=== PATIENT | male | born 1935 | race Caucasian/White ===

== ENCOUNTER → 2016-09-08 | Outpatient (CLI) | payer MEDICARE ==
[~2016-09-08] MED LIST: ALBU17AE3 IH; ALLP300T PO; AMD200T; ASMANEX TWISTHALER IH; DIGO125T; FRSM20T; GLIP5TAB13 PO; GMFB600T; HYDR-3454 PO; KCL20TCR; LEVO100T46; LSNP10T; LVT.025T PO; LVT.15T PO; METF-380 PO; METO25TA2 PO; MOME0.132 IH; MTP25TSR; SMV10T; VANC1FRO IV; WRF2.5T; WRF5T
--- NOTE | 2016-09-08 09:52 | Diagnostic Imaging Report ---
PROCEDURE: US Bilateral lower extremity arterial. TECHNIQUE: Multiple real-time grayscale images are obtained through both lower extremity arterial systems with color Doppler imaging and color Doppler spectral analysis. INDICATION: Bilateral lower extremity arterial ultrasound. INDICATION: Bilateral foot pain and diabetes. FINDINGS: RIGHT LOWER EXTREMITY: The right lower extremity arteries demonstrate patency with color Doppler flow demonstrated in the femoropopliteal segments and in the posterior tibial and dorsalis pedis arteries. There are biphasic waveforms seen in the femoropopliteal segments. The popliteal artery demonstrates an aneurysm measuring 2.8 cm in diameter and the extent of the aneurysm involves about a 6 cm length of the vessel. Most of the aneurysm lumen is thrombosed. The right posterior tibial artery has diminished monophasic flow with a velocity of 19 cm/s. Monophasic slightly diminished flow of 33 cm/s is seen in the right dorsalis pedis artery. LEFT LOWER EXTREMITY: There are patent femoropopliteal segments with triphasic flow in the common femoral artery and in the SFA. The popliteal artery also demonstrates triphasic flow. The left popliteal artery demonstrates an aneurysm measuring 1.8 cm in diameter. Flow is still triphasic. The posterior tibial artery appears to be occluded from its origin. The dorsalis pedis demonstrates diminished monophasic flow with a velocity of 34 cm/s. 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 The infrapopliteal disease could be at least in part related to embolization from the popliteal artery aneurysm on both sides. Correlate clinically. The report was faxed to the office of WILBER Holloway, by TIKI at 9:55 AM. Dictated by: Dictated on workstation # [id number]
== END ==
LOC: RAD 08:26
PROVIDERS: ATTEND Nurse Practitioner
DX: I72.4 Aneurysm of artery of lower extremity (principal); E11.40 Type 2 diabetes mellitus with diabetic neuropathy, unspecified
CPT/HCPCS: 93925